=== PATIENT | female | born 1935 | race Caucasian/White ===

== ENCOUNTER 2024-01-04 17:41 | Emergency (ER) | payer OTHER ==
[2024-01-04] MEDS ORDERED: MECLIZINE HCL 25 MG TABLET (FP) ONE (18:19)
[2024-01-04 18:23] VITALS: BMI 26.2
[2024-01-04] MEDS: MECLIZINE HCL 25 MG TABLET (FP) PO ONE (18:38)
[2024-01-04] MEDS: LACTATED RINGERS SOLUTION 1000 ML INFUS.BAG IV ONE (18:39)
[2024-01-04 19:10] LABS: POTASSIUM 4.7 mmol/L (3.5-5.1)
[2024-01-04 19:11] LABS: BASO % 0.8 % (0-2.0); EOS % 3.2 % (0-4.5); HEMATOCRIT 39.3 % (32.4-45.2); HEMOGLOBIN 12.8 GM/dL (10.7-15.3); LYMPH % 20.1 % (8-40); MCH 29.4 pg (25.7-33.7); MCHC 32.5 g/dl (32.0-36.0); MEAN CELL VOLUME 90.6 fl (80-96); MEAN PLT VOLUME 8.8 fl (7.5-11.1); MONO % 6.8 % (3.8-10.2); NEUT % 69.1 % (42.8-82.8); PLATELET COUNT 284 10^3/uL (134-434); RBC 4.34 M/mm3 (3.60-5.2); RDW 14.5 % (11.6-15.6); WHITE BLOOD COUNT 7.6 K/mm3 (4.0-10.0)
[2024-01-04 19:12] LABS: ALBUMIN 3.6 g/dl (3.4-5.0); CALCIUM 8.8 mg/dL (8.5-10.1)
[2024-01-04 19:13] LABS: BLOOD UREA NITROGEN 16.3 mg/dL (7-18); MAGNESIUM 1.7 mg/dL (1.8-2.4)
[2024-01-04 19:15] LABS: PHOSPHOROUS 4.3 mg/dL (2.5-4.9)
[2024-01-04 19:16] LABS: CREATININE 1.1 mg/dL (0.55-1.3)
[2024-01-04 19:17] LABS: BILIRUBIN,TOTAL 0.5 mg/dL (0.2-1); TOT PROT 6.7 g/dl (6.4-8.2)
[2024-01-05] MEDS ORDERED: ALPRAZolam 0.25 MG TABLET ONE (01:14)
[2024-01-05] MEDS: ALPRAZolam 1 MG TABLET PO STA (01:29)
[2024-01-05 07:37] VITALS: BP 113/64; PULSE 64; RESP 16; TEMP 98.3
== END 2024-01-05 08:44 ==
LOC: JER 17:41
DX: R42 Dizziness and giddiness (principal); Z20.822 Contact with and (suspected) exposure to COVID-19
CPT/HCPCS: 0241U-QW; 36415; 70450-TC; 71045-TC-FY; 80053; 82962; 83735; 84100; 84439; 84443; 84484; 85025; 93005; 93010; 99285-25